=== PATIENT | male | born 1980 | race Caucasian/White ===

== ENCOUNTER 2021-10-28 10:46 | Emergency (ER) | payer MEDICAID, SELFPAY ==
--- NOTE | ~2021-10-28 | XR_ITS ---
EXAMINATION: XR CHEST CLINICAL INFORMATION: Chest pain/SOB COMPARISON: Chest 05/21/2013 TECHNIQUE: Frontal view of the chest was obtained. FINDINGS: No significant abnormality is noted involving the heart, lungs, mediastinum, bony thorax or soft tissues. XR/XR chest 1V IMPRESSION: Unremarkable chest examination.
[2021-10-28 11:14] VITALS: BP 153/79; PULSE 86; RESP 17; TEMP 36.7; O2SAT 97; BMI 44.6
--- NOTE | 2021-10-28 11:17 | ECG_ITS ---
Test Reason : cp Blood Pressure : / mmHG Vent. Rate : 075 BPM Atrial Rate : 075 BPM P-R Int : 152 ms QRS Dur : 090 ms QT Int : 408 ms P-R-T Axes : 036 004 009 degrees QTc Int : 455 ms Sinus rhythm with marked sinus arrhythmia Otherwise normal ECG When compared with ECG of 22-MAY-2013 07:18, No significant change was found Referred By: Generic ED Physician Electronically Signed By:SUKHDEV SAMUELS
[2021-10-28 11:29] LABS: MANUAL DIFF FLAG NO
[2021-10-28 11:32] LABS: Basophils Absolute Auto 0.1 X10*3/uL (0.0-0.2); Basophils Percent Auto 1.1 % (0-2); Eosinophils Absolute Auto 0.2 X10*3/uL (0.0-0.4); Eosinophils Percent Auto 4.4 % (0-4); Hematocrit 42.1 % (42.0-52.0); Hemoglobin 13.5 g/dl (14.0-18.0); Imm Gran Abs Auto 0.01 X10*3/uL (0.00-0.03); Imm Gran Pct Auto 0.2 % (0.0-0.4); Lymphocytes Absolute Auto 1.8 X10*3/uL (1.2-4.9); Lymphocytes Percent Auto 31.9 % (20-40); Mean Corpuscular HGB Conc 32.1 g/dl (31.0-36.0); Mean Corpuscular Volume 90.3 fL (80.0-98.0); Mean Platelet Volume 8.5 fL (9.4-12.4); Monocytes Absolute Auto 0.5 X10*3/uL (0.1-1.2); Monocytes Percent Auto 9.7 % (2-11); Neutrophils Absolute Auto 2.9 x10*3/uL (2.0-8.3); Neutrophils Percent Auto 52.7 % (45-73); Platelet Count 211 X10*3/uL (160-400); Red Blood Count 4.66 X10*6/uL (4.60-5.80); Red Cell Distribution Width 11.9 % (11.0-16.0); White Blood Count 5.5 X10*3/uL (4.8-10.8)
[2021-10-28 11:50] LABS: Anion Gap 14 (12-20); Blood Urea Nitrogen 14 mg/dL (9-16); Calcium 9.1 mg/dL (8.4-10.2); Carbon Dioxide 21 mmol/L (22-29); Chloride 109 mmol/L (96-108); Creatinine Clr Calc Pharmacy 133.9; Estimated Glomerular Filt Rate > 60; Glucose Random 116 mg/dL (60-115); Sodium 140 mmol/L (135-145)
[2021-10-28 11:56] LABS: Troponin-I High Sensitivity < 3.5 ng/L (<3.5-35.0)
--- NOTE | 2021-10-28 17:49 | ED_ITS ---
HPI - Chest Pain General Chief Complaint: Chest Pain Stated Complaint: Pain when breathing Time Seen by Provider: 10/28/21 17:49 Source: patient Mode of arrival: ambulatory Limitations: no limitations History of Present Illness HPI narrative: The patient overweight weighing about 300 lb been complaining of right scapular pain for last 6-8 months unable to establish PCP does not remember any injury complaining of pain in the right rhomboids area especially when he moves his right hand. Patient also complaining of shortness of breath and snoring innight patient is saturating 97% at room air no cough no Related Data Previous Rx's Medication Instructions Recorded cyclobenzaprine 10 mg tablet 10 mg PO Q8H #20 tabs 10/28/21 tramadol 50 mg tablet 50 mg PO Q6H PRN pain #20 tabs 10/28/21 Allergies Allergy/AdvReac Type Severity Reaction Status Date / Time No Known Allergies Allergy Unverified 12/21/19 17:28 [No Known Allergies*] Seasonale Allergy Unknown Unknown Uncoded 10/28/21 11:14 Review of Systems Review of Systems: Yes all other systems are reviewed and are negative Physical Exam Vital Signs: Vital Signs: Last Vital Signs Temp 98.1 F 10/28/21 11:14 Pulse 86 10/28/21 11:14 Resp 17 10/28/21 11:14 BP 153/79 H 10/28/21 11:14 Pulse Ox 97 10/28/21 11:14 O2 Del Method 10/28/21 11:14 BMI result Body Mass Index 44.6 Appearance: Alert. Oriented X3. No acute distress. Obese ENT: Pharynx normal. Oral Mucosa moist Neck: Normal inspection. Neck supple. CVS: Normal heart rate and rhythm. Pulses normal. Respiratory: No respiratory distress. Equal air entry bilateral, no wheezing/rales/rhonchi Abdomen: Soft and nontender. Bowel sounds are present, no mass palpable, no CVA tenderness Skin: Skin warm and dry. Normal skin color. Normal skin turgor. Extremities: No lower extremity edema. No calf tenderness Back: Tenderness in the right rhomboids area Neuro: Oriented X 3. No motor deficit. No sensory deficit.No cerebellar signs , cranial nerves II-XII intact MDM - Chest Pain Lab Data Attestation: I reviewed the patient's lab results. Result diagrams: 10/28/21 11:25 10/28/21 11:25 Labs: Lab Results 10/28/21 10/28/21 10/28/21 Range/Units 11:25 11:25 11:25 WBC 5.5 (4.8-10.8) X10*3/uL RBC 4.66 (4.60-5.80) X10*6/uL Hgb 13.5 L (14.0-18.0) g/dl Hct 42.1 (42.0-52.0) % MCV 90.3 (80.0-98.0) fL MCH 29.0 (27.0-33.0) pg MCHC 32.1 (31.0-36.0) g/dl RDW 11.9 (11.0-16.0) % Plt Count 211 (160-400) X10*3/uL MPV 8.5 L (9.4-12.4) fL Immature Gran % (Auto) 0.2 (0.0-0.4) % Neut % (Auto) 52.7 (45-73) % Lymph % (Auto) 31.9 (20-40) % [place] % (Auto) 9.7 (2-11) % Eos % (Auto) 4.4 H (0-4) % Baso % (Auto) 1.1 (0-2) % Lymph # (Auto) 1.8 (1.2-4.9) X10*3/uL [place] # (Auto) 0.5 (0.1-1.2) X10*3/uL Eos # (Auto) 0.2 (0.0-0.4) X10*3/uL Baso # (Auto) 0.1 (0.0-0.2) X10*3/uL Abs Immat Gran (auto) 0.01 (0.00-0.03) X10*3/uL Absolute Neuts (auto) 2.9 (2.0-8.3) x10*3/uL Absolute Nucleated RBC 0.000 (0.0-0.012) X10*3/uL Nucleated RBC % (auto) 0.0 (0.0-0.2) /100WBC Sodium 140 (135-145) mmol/L Potassium 4.0 (3.3-5.1) mmol/L Chloride 109 H (96-108) mmol/L Carbon Dioxide 21 L (22-29) mmol/L Anion Gap 14 (12-20) BUN 14 (9-16) mg/dL Creatinine 1.06 (0.5-1.4) mg/dL Estim Creat Clear Calc 133.9 Estimated GFR > 60 Random Glucose 116 H (60-115) mg/dL Calcium 9.1 (8.4-10.2) mg/dL Troponin I High Sens < 3.5 (<3.5-35.0) ng/L ECG Data ECG #1: Attestation: I personally reviewed and interpreted this ECG as follows: Interpretation: Normal sinus rhythm heart rate 75 beats per minute PACs normal axis no acute ST T wave changes no acute ischemia Discharge Plan Discharge Clinical Impression: Strain of right rhomboid muscle Patient Disposition: Home, Self-Care Instructions: Thoracic Back Strain (ED) Prescriptions: New cyclobenzaprine 10 mg tablet 10 mg PO Q8H Qty: 20 0RF tramadol 50 mg tablet 50 mg PO Q6H PRN (Reason: pain) Qty: 20 0RF
[2021-10-28] MEDS: traMADoL HCL 50 MG TABLET PO (18:31)
[2021-10-28] MEDS: Cyclobenzaprine HCl 10 MG TABLET PO (18:32)
== END 2021-10-28 18:34 | disposition home or self-care (01) ==
PROVIDERS: Emergency Provider Internal Medicine; PCP Internal Medicine
DX: S46.811A Strain of other muscles, fascia and tendons at shoulder and upper arm level, right arm, initial encounter (principal); X58.XXXA Exposure to other specified factors, initial encounter; E66.3 Overweight; Z68.41 Body mass index [BMI] 40.0-44.9, adult; Y93.9 Activity, unspecified; Y92.9 Unspecified place or not applicable; Y99.9 Unspecified external cause status
CPT/HCPCS: 36415; 71045; 80048; 84484; 85025; 93005; 99283